=== PATIENT | male | born 1935 | race Caucasian/White ===

== ENCOUNTER 2018-12-21 05:34 | Inpatient (IN) ==
[2018-12-21] MEDS ORDERED: Dextrose 50% in Water 50 ML Vial IV.PUSH PRN (06:00)
[2018-12-21] MEDS ORDERED: Chlorhexidine 4% Topical 120 APPLIC/120 ML Bottle TOPICAL SCH (06:00)
[2018-12-21] MEDS ORDERED: ceFAZolin 2 GM Premix Inj 2 GM/50 ML PIGGYBACK IV.SIG SCH (06:00)
[2018-12-21] MEDS ORDERED: Sodium Chlor 0.9% Inj 77.5 ML, Papaverine Inj 60 MG, Nitroglycerin Inj 100 MCG, dilTIAZ... IRRIGATION SCH ×3 (06:00)
[2018-12-21] MEDS ORDERED: Sodium Chloride 0.9% Irr Bot 500 ML, ceFAZolin Inj 500 MG IRRIGATION SCH ×2 (06:00)
[2018-12-21] MEDS ORDERED: Insulin Regular (For Infusion) 100 UNIT in Sodium Chlor 0.9% Inj 99 ML IV.CONT PRN ×2 (06:00→12:34)
[2018-12-21] MEDS ORDERED: Chlorhexidine Gluconate 2% 1 Pack (2 Cloths) TOPICAL ONE (06:04)
[2018-12-21] MEDS ORDERED: Sugammadex Inj 200 MG/2 ML Vial IV.PUSH ONE (06:45)
[2018-12-21] MEDS ORDERED: fentaNYL Citrate Inj 1,000 MCG/20 ML Vial ONE (06:46)
[2018-12-21] MEDS ORDERED: Heparin - SQ 10,000 UNITS/ML Vial ONE ×2 (06:50→06:51)
[2018-12-21] MEDS ORDERED: ceFAZolin 2 GM Premix Inj 2 GM/50 ML PIGGYBACK IV.SIG ONE (06:50)
[2018-12-21] MEDS ORDERED: Sodium Chlor 0.9% Inj 500 ML IV.SIG SCH (07:00)
[2018-12-21] MEDS ORDERED: Glycopyrrolate 0.2 MG/ML Vial IV.PUSH ONE (07:38)
[2018-12-21] MEDS ORDERED: Phenylephrine/NS 1000 MCG/10ML Syringe IV.PUSH ONE (07:38)
[2018-12-21] MEDS ORDERED: Protamine Sulfate Inj 250 MG/25 ML Vial IV.CONT ONE (07:38)
[2018-12-21] MEDS ORDERED: Heparin - SQ 10,000 UNITS/ML Vial OTHER ONE (07:38)
[2018-12-21] MEDS ORDERED: Normosol-R pH 7.4 Inj 2,000 ML IV.CONT ONE (07:38)
[2018-12-21] MEDS ORDERED: Dexmedetomidine Inj 200 MCG/2 ML Vial IV.CONT ONE (07:38)
[2018-12-21] MEDS ORDERED: Lidocaine PF 1% Inj 5 ML Vial INFILTRATN ONE (07:38)
[2018-12-21] MEDS ORDERED: Nitroglycerin Drip Premix 50 MG/250 ML BOTTLE IV.CONT ONE (07:38)
[2018-12-21] MEDS ORDERED: Clevidipine Inj 25 MG/50 ML VIAL ONE (08:52)
[2018-12-21] MEDS ORDERED: Ketorolac Inj 30 MG/ML (IVP) Vial IV.PUSH PRN (12:34)
[2018-12-21] MEDS ORDERED: RESP: Racemic Epinephrine 2.25% 0.5 ML Neb NEB PRN (12:34)
[2018-12-21] MEDS ORDERED: Post-op Orders (for Pharmacy) OTHER STA (12:34)
[2018-12-21] MEDS ORDERED: Metoprolol Inj 5 MG/5 ML Vial IV.PUSH PRN (12:34)
[2018-12-21] MEDS ORDERED: Potassium Chlor 20 mEq Premix 20 MEQ/100 ML PIGGYBACK IV.SIG PRN ×3 (12:34)
[2018-12-21] MEDS ORDERED: Clevidipine Inj 25 MG/50 ML VIAL IV.CONT PRN (12:34)
[2018-12-21] MEDS ORDERED: Calcium Chloride Inj 1 GM in Sodium Chlor 0.9% Inj 100 ML IV.SIG PRN (12:34)
[2018-12-21] MEDS ORDERED: Morphine Sulfate Inj 2 MG/ML Vial IV.PUSH PRN (12:34)
[2018-12-21] MEDS ORDERED: Calcium Chloride Inj 1 GM/10 ML Syringe IV.PUSH PRN (12:34)
[2018-12-21] MEDS ORDERED: Magnesium Sulfate Inj 2 GM in Sodium Chlor 0.9% Inj 96 ML IV.SIG PRN ×4 (12:34)
[2018-12-21] MEDS ORDERED: Albumin Human 5% Inj 250 ML IV.SIG PRN (12:34)
[2018-12-21] MEDS ORDERED: Phenylephrine Inj 40 MG in Sodium Chlor 0.9% Inj 496 ML IV.CONT PRN (12:34)
[2018-12-21] MEDS ORDERED: Dexmedetomidine Inj 200 MCG in Sodium Chlor 0.9% Inj 50 ML IV.CONT PRN (12:34)
[2018-12-21] MEDS ORDERED: fentaNYL Citrate Inj 100 MCG/2 ML Ampul IV.PUSH PRN (12:34)
--- NOTE | 2018-12-21 12:43 | P.OP ---
Date of procedure: 12/21/18 Anesthesia: GETA Surgeon: Taylor Hackett MD Operation and Findings: PREPROCEDURE DIAGNOSES 1. Severe Multi Vessel Coronary Artery Disease. 2. TIA 3. Hypertension 4. Stable Angina POSTPROCEDURE DIAGNOSES Same SURGICAL PROCEDURE 1. Off-pump Coronary Artery Bypass Grafting x 3 with Left Internal Mammary Artery (LÓPEZ) to Left Anterior Descending (LAD), reverse saphenous vein graft to Diagonal 1 branch of the left Anterior Descending Artery, reverse saphenous vein graft to the posterior Descending branch of the right Coronary artery 2. Left leg Endoscopic Vein [place] 3. Intraoperative Vein Mapping. SURGEON Taylor Hackett MD STOCK ROOM MANAGER Ritu Durant, CLIENT EXECUTIVE FA Teto Bell SA ANESTHESIA General endotracheal CORK GRINDER MARIANN De La Rosa MD PREPARATION ChloraPrep. COUNTS Needle, sponge, and instrument counts were correct. DRAINS Two 32-Wolof mediastinal tubes. COMPLICATIONS None. INDICATIONS FOR PROCEDURE The patient is a 83-year-old presenting with chest pain. Patient was noted to have multi vessel coronary artery disease. The patient is being brought to the operating room for surgical revascularization therapy. PROCEDURE Patient was brought to the operating room and placed supine on the OR table. Following the induction of adequate general endotracheal anesthesia and placement of appropriate monitoring devices, intraoperative vein mapping was performed which revealed good-caliber conduit in bilateral lower extremities. The patient was then prepped and draped in standard sterile fashion. Next, 2500 units of intravenous heparin was given. The left greater saphenous vein was harvested endoscopically. This appeared to be a useable-caliber conduit. Simultaneously, a median sternotomy was performed and the left internal mammary artery dissected free off the posterior sternal table. The patient was systemically heparinized and anticoagulation monitored by serial ACT measurements. The internal mammary artery had excellent pulsatile flow in it and was a good-caliber conduit. The pericardium was then divided in the midline , the cradle created and targets analyzed. At this point, all anastomoses were performed in a beating-heart fashion using the Testive stabilizing system. The left internal mammary artery was anastomosed to the distal LAD (2 mm) in an end- to-side fashion using 7-0 Prolene. Of note, the LAD was diffusely and heavily calcified and diseased throughout its entire course. Segment of saphenous vein graft was then anastomosed to the D1 (1.75 mm) in an end-to-side fashion using 7 -0 Prolene. The final segment was anastomosed to the RPDA (1.75 mm) in an end- to-side fashion using 7-0 Prolene. The proximal anastomoses were then constructed to the ascending aorta in a running manner using 6-0 Prolene. All anastomotic sites were inspected and appeared to be hemostatic and patent. Protamine solution was given. Strict hemostasis was assured. The closure was undertaken. 2 chest tubes were placed. The pericardium was reapproximated in the midline. The sternum was approximated using sternal wires. The muscular and fascial layer were then closed in 3 layers. The endoscopic vein harvest site was closed in 2 layers. The patient tolerated the procedure well and was transferred to CVICU in stable condition.
[2018-12-21] MEDS ORDERED: Albumin Human 5% Inj 500 ML IV.SIG ONE (12:56)
[2018-12-21] MEDS ORDERED: fentaNYL Citrate Inj 250 MCG/5 ML Ampul ONE ×2 (13:13)
--- NOTE | 2018-12-21 13:27 | P.PNCV ---
- Note Subjective/Hospital Course: 11/19/2018 83-year-old male initially seen 11/19/18 post cardiac cath , followed by Dr. Carl, Dr. De Los Santos and also Dr. Aristides Gee who has been experiencing some exertional chest pain off and on for the past year, midsternal in nature. He was seen by Dr. De Los Santos in the past for a history of TIA and followup with echos and recently was seen in the office on 11/04/2018. He underwent a nuclear stress test which showed an ejection fraction of 55%, moderate ischemia of the inferolateral wall, left ventricular function normal. He also had a 2-D echo which showed an ejection fraction of 53%, some diastolic dysfunction. The left atrium was moderately dilated. No mitral disease. Some trivial tricuspid disease. Mild LVH. It showed a mildly enlarged aortic root. The root measured 44 mm. He underwent a cardiac catheterization which showed left main disease 10%, proximal LAD 60%, mid distal LAD 80%, diagonal 70%, circumflex 100% , OM 80%, RCA 100%. PAST MEDICAL HISTORY: Includes a history of TIA. His last one was in July 2017. He has had 4 episodes in the past. Hyperlipidemia, hypertension, sleep apnea. 12/21 pt electively admitted for surgery SURGICAL PROCEDURE 1. Off-pump Coronary Artery Bypass Grafting x 3 with Left Internal Mammary Artery (LÓPEZ) to Left Anterior Descending (LAD), reverse saphenous vein graft to Diagonal 1 branch of the left Anterior Descending Artery, reverse saphenous vein graft to the posterior Descending branch of the right Coronary artery 2. Left leg Endoscopic Vein [place] 3. Intraoperative Vein Mapping. Objective: Vital Signs - 24 hr 12/21/18 06:42 12/21/18 13:05 12/21/18 13:16 Temperature 98.5 F Pulse Rate 64 Respiratory Rate 18 17 Blood Pressure 172/97 H Pulse Oximetry 95 96 94 L Labs: Laboratory Results - last 12 hr 12/21/18 12/21/18 06:35 06:35 Nasal Screen MRSA (PCR) Not detected Blood Type O Positive Antibody Screen Negative MTS Gel Crossmatch See Detail
--- NOTE | 2018-12-21 13:55 | XR ---
EXAM DATE: 12/21/2018 1:41 PM EST AGE/SEX: 83 years / Male INDICATIONS: Post op CABG. CLINICAL DATA: This is the patient's subsequent encounter. Patient reports that signs and symptoms h ave been present for 1 day and indicates a pain score of Nonresponsive. MEDICAL/SURGICAL HISTORY: Cardiovascular disease. CABG. COMPARISON: [facility], XR CHEST PA AND LAT, 12/16/2018. . FINDINGS: Patient is now postoperative median sternotomy. Mediastinal drain, left chest tube, endotracheal tube , nasogastric tube and right IJ central venous catheter are all present. Endotracheal tube tip is quentin roximately 4 cm above the elma. Mild atelectasis and small pleural effusion at the left lung base. There is a tiny right pleural effu payton. CONCLUSION: 1. Postoperative median sternotomy with appropriate position of lines and tubes as above. 2. Tiny right pleural effusion. 3. Small pleural effusion and mild basilar consolidation on the left. Electronically signed by: Kodi Ta MD Board Certified Radiologist 12/21/2018 1:54 PM EST
--- NOTE | 2018-12-21 14:04 | P.DCO ---
- Diagnosis (1) CAD (coronary artery disease), [place] coronary artery Status: Acute (2) S/P CABG x 3 Status: Acute (3) Hyperlipidemia Status: Chronic (4) Hypertension Status: Chronic (5) Hyperlipidemia Status: Chronic - Home Health Nursing Order: Medical education, Signs/symptoms of disease process, Wound care and dressing changes, Nursing assessment with vital signs Instructions: Heart and Vascular Surgery patients *Special attention to sternal dressing Mandatory frequency Assess and evaluation, 4 days in a row The next week 3X week 2 times a week for 4 weeks 1 time a week for 5 weeks Schedule Heart and Vascular patients for full 60 day certification period Initial visit Review Open Heart Surgery Discharge Instructions (Sternal precautions, Activity, Elastic hose, Incision care, Driving, Incentive spirometry, Smoking, [place], Work and other) Need Betadine to paint incision Medication reconciliation Importance of follow up care/ check on appointments Make calendar record temperature daily When to call [facility] at Home nurse, review instructions, phone list Incentive Spirometry, demonstration Visit 1- Begin discharge instruction for patient family and/ or caregiver using teach back method- Signs and symptoms of infection Disease characteristics Medicines and side effects Foods and nutrition/ appetite Infection control/ hand washing/ hygiene Visit 2- Continue teaching Discharge instructions- include additional information on smoking cessation , sternal dressing (sternal vac) Visit 3- Continue teaching- Cough and deep breathing, incision monitoring. Choose my plate Visit 4- Continue teaching- Discuss limitations Discuss how they are feeling Discuss progress toward goals Remaining visits- continue teaching and monitoring For any questions please call : Thursday 8am-5pm Heart & Vascular Surgery Office ( Dr. Hackett & Dr. Noble), After Hours / Nights (5pm -8am) Weekends and Holidays Please call [facility] Cardiac Intermediate Care Unit (CIC) Charge Nurse PREVENA Single Use Negative Wound Therapy System Caregiver Instruction Sheet 1. A Prevena dressing system was applied to the chest incision during surgery , to promote wound healing. It works via a suction device (negative pressure wound therapy) to remove low to moderate levels of exudate (drainage) and infectious materials. We recommend that the device stay in place for up to seven days, from day of surgery. 2. Day of Surgery___/ Day of Removal ___12/28/18 3. The dressing should only be removed by a health career orientation teacher. Please arrange removal of device to coincide with Home Health visit and or with Nursing staff at Rehab 4. If skin reddening or irritation of skin occurs, or excessive drainage, please notify the Cardiovascular Surgeons office at [phone]. 5. Light showering is permissible; however the pump should be disconnected and placed in safe location, where it will not get wet. The dressing should not be exposed to direct spray or submerged in water. No bath tub / shower only. Ensure the end of the tubing attached to the dressing is facing down so that water does not enter the top of the tube. 6. To remove Prevena dressing: press purple button to turn off device / remove the suction. Then disconnect the tubing from the pump. The fixation strips should be stretched away from the skin and the dressing lifted at one corner and peeled back until it has been fully removed. 7. After removal, it is ok to shower daily using liquid dial soap and clean wash cloth, rinse and pat dry, and leave incision open to air dry. For any concerns regarding Prevena dressing, and or wounds, please contact Aidee Cat, patient navigator at [phone] or notify the Cardiovascular Surgeons office at [phone]. Incentive spirometry Q1 hr x 10, while awake, also use acapella device hourly whole awake Sternal Breast Bone Precautions: NO pushing or pulling, ( pt must use sternal pillow to support chest with all activities and with coughing ( takes up to 3 months breast bone to heal ) Daily incision care: ok to shower daily, no tub bath. Wash all incisions with liquid dial soap, clean wash cloth to each site, rinse and pat dry. Observe for any signs of infection, such as drainage which is dark yellow, velez, green or foul smelling. Immediately report to the surgeon any drainage from the chest incision, or legs, and for any abnormal drainage from the chest tube sites. Notify surgeon if any temp >101.5 degrees F. When specialty dressing removed/ or if you do not have one, continue to shower daily as above, then rinse and pat incision dry and paint with betadine daily x 5 days. Allow steri strips to fall off if you have any. Avoid lotions, creams, salves, oils, etc. for the first month Please see attached forms for additional instructions regarding post Open Heart specialty wound vacuum dressings. VANESSA or Prevena , Dressing to be removed by Nursing staff on _12/28/18_ F/U appointment: as per [place] instructions: PCP in 2 weeks, CV surgeon 2 weeks, Slope Runner 3-4 weeks For any questions regarding incisions/ dressing / meds / post op care or above Symptoms, Thursday 8am-5pm Heart & Vascular Surgery Office ( Dr. Hackett & Dr. Noble), After Hours / Nights (5pm -8am) Weekends and Holidays Please call [facility] Cardiac Intermediate Care Unit (CIC) Charge Nurse - Case Management Consult Case Management Consult-Home Health: Yes - Certification I have seen patient Buzz Avila on 12/21/18. My clinical findings support the need for the requested home health care services because: Deconditioned with increased weakness I certify that my clinical findings support that this patient is homebound because: Post-op weakness
[2018-12-21] MEDS ORDERED: ceFAZolin Inj 2,000 MG in Sodium Chlor 0.9% Inj 80 ML IV.SIG SCH (20:00)
[2018-12-21] MEDS: ceFAZolin 2 GM Premix Inj 2 GM/50 ML PIGGYBACK IV.SIG SCH (20:18)
[2018-12-21] MEDS: Amiodarone 200 MG Tablet PO SCH (20:19)
[2018-12-22] MEDS: ceFAZolin 2 GM Premix Inj 2 GM/50 ML PIGGYBACK IV.SIG SCH ×3 (03:26→20:00)
[2018-12-22 04:25] LABS: Hematocrit 36.9 % (39.0-51.0); Hemoglobin 12.9 gm/dL (13.0-17.0); Mean Corpuscular HGB Conc 34.9 % (32.0-36.0); Mean Corpuscular Hemoglobin 32.3 pg (27.0-34.0); Mean Corpuscular Volume 92.6 fL (80.0-100.0); Mean Platelet Volume 9.1 fL (7.0-11.0); Platelet Count 79 th/mm3 (150-450); Red Blood Count 3.99 mil/mm3 (4.50-5.90); Red Cell Distribution Width 13.3 % (11.6-17.2); White Blood Count 7.2 th/mm3 (4.0-11.0)
[2018-12-22 04:45] LABS: Calcium 8.9 mg/dL (8.5-10.1); Carbon Dioxide 24.6 meq/L (21.0-32.0); Potassium 4.2 meq/L (3.5-5.1)
--- NOTE | 2018-12-22 05:53 | XR ---
EXAM DATE: 12/22/2018 5:48 AM EST AGE/SEX: 83 years / Male INDICATIONS: S/P CABG. CLINICAL DATA: This is the patient's subsequent encounter. Patient reports that signs and symptoms h ave been present for 2 days and indicates a pain score of 0/10. MEDICAL/SURGICAL HISTORY: . High cholesterol. TIA. Hearing impared. HTN. CABG. Appendectomy. COMPARISON: [facility] [place]ST 1V SINGLE AP, 12/21/2018. . FINDINGS: A single AP view of the chest demonstrates the lungs to be symmetrically aerated with improving aerat ion in the left lung base. There is still some persistent airspace disease, however. Left-sided thora costomy tube is unchanged in position without pneumothorax. The endotracheal and nasogastric tubes be en removed. Right IJ central venous catheter is stable in position. Heart size is borderline prominen t but well compensated. CONCLUSION: 1. Endotracheal and nasogastric tubes have been removed. Left-sided thoracostomy tube in the right I J central venous catheter are unchanged in position. No pneumothorax. 2. Improving aeration in the left lung base. Right lung remains clear. Electronically signed by: Bridger Young MD Board Certified Radiologist 12/22/2018 5:52 AM EST
[2018-12-22] MEDS ORDERED: Dextrose 50% in Water 50 ML Vial IV.PUSH PRN (08:33)
[2018-12-22] MEDS ORDERED: Bisacodyl 10 MG Supp RECTAL PRN (08:33)
[2018-12-22] MEDS ORDERED: Sod Phosphate/Sod Biphosphate (Adult) Enema 133 ML Bottle RECTAL PRN (08:33)
[2018-12-22] MEDS ORDERED: Metoprolol Tartrate 25 MG Tablet PO SCH (09:00)
[2018-12-22] MEDS: Amiodarone 200 MG Tablet PO SCH ×2 (09:07→20:55)
[2018-12-22] MEDS: Multivitamin/Minerals Therapeutic Tablet PO SCH (09:07)
[2018-12-22] MEDS: Insulin NovoLOG Aspart Correctional Sugar Inj SQ SCH ×4 (10:11→21:58)
--- NOTE | 2018-12-22 10:19 | P.PNCV ---
- Note Subjective/Hospital Course: 11/19/2018 83-year-old male initially seen 11/19/18 post cardiac cath , followed by Dr. Carl, Dr. De Los Santos and also Dr. Aristides Gee who has been experiencing some exertional chest pain off and on for the past year, midsternal in nature. He was seen by Dr. De Los Santos in the past for a history of TIA and followup with echos and recently was seen in the office on 11/04/2018. He underwent a nuclear stress test which showed an ejection fraction of 55%, moderate ischemia of the inferolateral wall, left ventricular function normal. He also had a 2-D echo which showed an ejection fraction of 53%, some diastolic dysfunction. The left atrium was moderately dilated. No mitral disease. Some trivial tricuspid disease. Mild LVH. It showed a mildly enlarged aortic root. The root measured 44 mm. He underwent a cardiac catheterization which showed left main disease 10%, proximal LAD 60%, mid distal LAD 80%, diagonal 70%, circumflex 100% , OM 80%, RCA 100%. PAST MEDICAL HISTORY: Includes a history of TIA. His last one was in July 2017. He has had 4 episodes in the past. Hyperlipidemia, hypertension, sleep apnea. 12/21 pt electively admitted for surgery SURGICAL PROCEDURE 1. Off-pump Coronary Artery Bypass Grafting x 3 with Left Internal Mammary Artery (LÓPEZ) to Left Anterior Descending (LAD), reverse saphenous vein graft to Diagonal 1 branch of the left Anterior Descending Artery, reverse saphenous vein graft to the posterior Descending branch of the right Coronary artery 2. Left leg Endoscopic Vein [place] 3. Intraoperative Vein Mapping. extubated after surgery crystalloid 3500cc, 1000cc cell saver, 2000cc EBL 2/20 pt weaned off all IV meds, BP on higher sexual assault counselor, will add BB and Cozaar pain control PLT 79 ( 113) hold plavix today , ok for ASA will transfer to stepdown unit Objective: Vital Signs - 24 hr 12/21/18 13:05 12/21/18 13:16 12/21/18 13:40 Temperature 95.6 F L Pulse Rate Respiratory Rate 17 Blood Pressure Pulse Oximetry 96 94 L 12/21/18 13:53 12/21/18 14:00 12/21/18 15:00 Temperature 95.6 F L 98.5 F Pulse Rate 63 80 Respiratory Rate 16 Blood Pressure 150/73 H Pulse Oximetry 98 12/21/18 16:07 12/21/18 16:20 12/21/18 16:59 Temperature 97.6 F Pulse Rate 91 H 90 Respiratory Rate 20 Blood Pressure Pulse Oximetry 12/21/18 17:55 12/21/18 19:00 12/21/18 20:00 Temperature 97.8 F Pulse Rate 91 H 88 91 H Respiratory Rate 18 Blood Pressure 137/83 Pulse Oximetry 95 12/21/18 20:35 12/21/18 20:49 12/21/18 23:00 Temperature 97.9 F Pulse Rate 85 88 Respiratory Rate 18 20 18 Blood Pressure 138/78 Pulse Oximetry 95 12/22/18 00:00 12/22/18 02:30 12/22/18 03:00 Temperature 98.7 F Pulse Rate 89 Respiratory Rate 18 18 18 Blood Pressure 122/63 Pulse Oximetry 96 12/22/18 03:35 12/22/18 04:00 12/22/18 07:00 Temperature 98.9 F Pulse Rate 90 90 96 H Respiratory Rate 14 18 Blood Pressure Pulse Oximetry 94 L GENERAL: A&O x 3 SKIN: Warm and dry. prevena dressing to chest , BETTY wrap to left leg HEAD: Normocephalic. EYES: No scleral icterus. No injection or drainage. NECK: Supple, trachea midline. No JVD or lymphadenopathy. CARDIOVASCULAR: Regular rate and rhythm without murmurs, gallops, or rubs. RESPIRATORY: Breath sounds equal bilaterally. No accessory muscle use. diminished in bases , on nasal cannula GASTROINTESTINAL: Abdomen soft, non-tender, nondistended. MUSCULOSKELETAL: No cyanosis, or edema. BACK: Nontender without obvious deformity. No CVA tenderness. Labs: Laboratory Results - last 12 hr 12/21/18 12/22/18 12/22/18 06:35 00:24 02:08 WBC RBC Hgb Hct MCV MCH MCHC RDW Plt Count MPV Sodium Potassium Chloride Carbon Dioxide Anion Gap BUN Creatinine Estimated GFR POC Glucose 126 H 94 Random Glucose Calcium Magnesium Blood Type O Positive Antibody Screen Negative MTS Gel Crossmatch See Detail 12/22/18 12/22/18 12/22/18 04:10 04:10 04:14 WBC 7.2 RBC 3.99 L Hgb 12.9 L Hct 36.9 L MCV 92.6 MCH 32.3 MCHC 34.9 RDW 13.3 Plt Count 79 L MPV 9.1 Sodium 141 Potassium 4.2 Chloride 108 H Carbon Dioxide 24.6 Anion Gap 8 BUN 13 Creatinine 0.95 Estimated GFR 75 L POC Glucose 127 H Random Glucose 135 H Calcium 8.9 Magnesium 2.0 Blood Type Antibody Screen MTS Gel Crossmatch 12/22/18 05:48 WBC RBC Hgb Hct MCV MCH MCHC RDW Plt Count MPV Sodium Potassium Chloride Carbon Dioxide Anion Gap BUN Creatinine Estimated GFR POC Glucose 119 H Random Glucose Calcium Magnesium Blood Type Antibody Screen MTS Gel Crossmatch Result Diagrams: 12/22/18 04:10 12/22/18 04:10 Cardiovascular: NSR - Plan (2) S/P CABG x 3 Plan: Neuro: stable Resp: pulm toielting nebs ezpap acapella wean 02 as tolerated CV: start BB , cozaar on ASA , statin amiodarone hold plavix until am GI: motility meds PPI Heme: monitor plts hold plavix today CM to eval for rehab at discharge transfer to stepdown unit
--- NOTE | 2018-12-22 11:11 | P.DIET ---
Nutritional Evaluation Screening comments: MDC for diet education s/p CABG x 3 (12/21) received. Patient Navigator to provide education. Consult RD if complexities with diet education arise.
[2018-12-22] MEDS: Metoprolol Tartrate 25 MG Tablet PO SCH ×2 (11:35→21:59)
[2018-12-22] MEDS: Docusate Sodium 100 MG Capsule PO SCH (20:55)
--- NOTE | 2018-12-22 22:40 | ECG ---
Date Performed: 12/22/2018 Time Performed: 05:45:24 PTAGE: 83 years EKG: Sinus rhythm Possible left anterior fascicular block Lateral ST-T changes may be due to myocardial ischemia Abnor mal ECG PREVIOUS TRACING : 11/19/2018 06.48 DOCTOR: Henrique Uribe Interpretating Date/Time 12/22/2018 22:38:38
[2018-12-23] MEDS: ceFAZolin 2 GM Premix Inj 2 GM/50 ML PIGGYBACK IV.SIG SCH (03:28)
[2018-12-23] MEDS: Insulin NovoLOG Aspart Correctional Sugar Inj SQ SCH ×5 (03:38→21:58)
[2018-12-23 04:47] LABS: Baso % (Auto) 0.1 % (0.0-2.0); Eos % (Auto) 0.4 % (0.0-4.0); Hemoglobin 11.3 gm/dL (13.0-17.0); Lymph # (Auto) 0.7 th/mm3 (1.0-4.8); Lymph % (Auto) 7.3 % (9.0-44.0); Mean Corpuscular HGB Conc 34.2 % (32.0-36.0); Mean Corpuscular Hemoglobin 31.6 pg (27.0-34.0); Mean Corpuscular Volume 92.5 fL (80.0-100.0); Mean Platelet Volume 9.3 fL (7.0-11.0); Mono # (Auto) 1.2 th/mm3 (0.0-0.9); Mono % (Auto) 13.3 % (0.0-8.0); Neut # (Auto) 7.2 th/mm3 (1.8-7.7); Neut % (Auto) 78.9 % (16.0-70.0); Platelet Count 74 th/mm3 (150-450); Red Blood Count 3.57 mil/mm3 (4.50-5.90); Red Cell Distribution Width 13.6 % (11.6-17.2); White Blood Count 9.1 th/mm3 (4.0-11.0)
[2018-12-23 05:01] LABS: Calcium 9.4 mg/dL (8.5-10.1); Carbon Dioxide 26.5 meq/L (21.0-32.0); Magnesium 2.5 mg/dL (1.5-2.5); Potassium 4.5 meq/L (3.5-5.1)
[2018-12-23 06:41] LABS: Platelet Morphology Normal (Normal)
--- NOTE | 2018-12-23 07:57 | P.PNCV ---
- Note Subjective/Hospital Course: 11/19/2018 83-year-old male initially seen 11/19/18 post cardiac cath , followed by Dr. Carl, Dr. De Los Santos and also Dr. Aristides Gee who has been experiencing some exertional chest pain off and on for the past year, midsternal in nature. He was seen by Dr. De Los Santos in the past for a history of TIA and followup with echos and recently was seen in the office on 11/04/2018. He underwent a nuclear stress test which showed an ejection fraction of 55%, moderate ischemia of the inferolateral wall, left ventricular function normal. He also had a 2-D echo which showed an ejection fraction of 53%, some diastolic dysfunction. The left atrium was moderately dilated. No mitral disease. Some trivial tricuspid disease. Mild LVH. It showed a mildly enlarged aortic root. The root measured 44 mm. He underwent a cardiac catheterization which showed left main disease 10%, proximal LAD 60%, mid distal LAD 80%, diagonal 70%, circumflex 100% , OM 80%, RCA 100%. PAST MEDICAL HISTORY: Includes a history of TIA. His last one was in July 2017. He has had 4 episodes in the past. Hyperlipidemia, hypertension, sleep apnea. 12/21 pt electively admitted for surgery SURGICAL PROCEDURE 1. Off-pump Coronary Artery Bypass Grafting x 3 with Left Internal Mammary Artery (LÓPEZ) to Left Anterior Descending (LAD), reverse saphenous vein graft to Diagonal 1 branch of the left Anterior Descending Artery, reverse saphenous vein graft to the posterior Descending branch of the right Coronary artery 2. Left leg Endoscopic Vein [place] 3. Intraoperative Vein Mapping. extubated after surgery crystalloid 3500cc, 1000cc cell saver, 2000cc EBL 12/22 pt weaned off all IV meds, BP on higher mortar carrier, will add BB and Cozaar pain control PLT 79 ( 113) hold plavix today , ok for ASA will transfer to stepdown unit 12/23 Clinically stable Awaiting CPCU transfer Creatinine up. Will monitor. D/C Toradol Maintain CT to drainage Objective: Vital Signs - 24 hr 12/22/18 10:40 12/22/18 11:00 12/22/18 12:00 Temperature 98.6 F Pulse Rate 48 L Respiratory Rate 18 18 Blood Pressure 101/49 L Pulse Oximetry 97 94 L 12/22/18 13:22 12/22/18 15:00 12/22/18 19:00 Temperature 98.3 F 97.9 F Pulse Rate 49 L 49 L 56 L Respiratory Rate 18 18 Blood Pressure 123/93 H 104/52 L Pulse Oximetry 97 90 L 12/22/18 19:12 12/22/18 22:31 12/22/18 22:32 Temperature Pulse Rate 56 L Respiratory Rate 20 20 Blood Pressure Pulse Oximetry 97 12/22/18 23:00 12/23/18 00:30 12/23/18 03:00 Temperature 97.9 F 98.1 F Pulse Rate 65 57 L Respiratory Rate 18 16 18 Blood Pressure 132/51 L 106/53 L Pulse Oximetry 95 95 Labs: Laboratory Results - last 12 hr 12/22/18 12/23/18 12/23/18 21:39 03:36 04:00 WBC 9.1 RBC 3.57 L Hgb 11.3 L Hct 33.0 L MCV 92.5 MCH 31.6 MCHC 34.2 RDW 13.6 Plt Count 74 L MPV 9.3 Prelim Diff (Auto) Slide review pending Neut % (Auto) 78.9 H Lymph % (Auto) 7.3 L Gregory % (Auto) 13.3 H Eos % (Auto) 0.4 Baso % (Auto) 0.1 Neut # (Auto) 7.2 Lymph # (Auto) 0.7 L Gregory # (Auto) 1.2 H Eos # (Auto) 0.0 Baso # (Auto) 0.0 WBC Differential . Diff Scan Auto diff confirmed Differential Comment . Platelet Estimate Low L Platelet Morphology Normal Sodium Potassium Chloride Carbon Dioxide Anion Gap BUN Creatinine Estimated GFR POC Glucose 160 H 131 H Random Glucose Calcium Magnesium 12/23/18 04:00 WBC RBC Hgb Hct MCV MCH MCHC RDW Plt Count MPV Prelim Diff (Auto) Neut % (Auto) Lymph % (Auto) Gregory % (Auto) Eos % (Auto) Baso % (Auto) Neut # (Auto) Lymph # (Auto) Gregory # (Auto) Eos # (Auto) Baso # (Auto) WBC Differential Diff Scan Differential Comment Platelet Estimate Platelet Morphology Sodium 137 Potassium 4.5 Chloride 103 Carbon Dioxide 26.5 Anion Gap 8 BUN 22 H Creatinine 1.61 H Estimated GFR 41 L POC Glucose Random Glucose 128 H Calcium 9.4 Magnesium 2.5 Result Diagrams: 12/23/18 04:00 12/23/18 04:00 - Plan (2) S/P CABG x 3 Plan: Neuro: stable Resp: pulm toielting nebs ezpap acapella wean 02 as tolerated CV: start BB , cozaar on ASA , statin amiodarone hold plavix until am GI: motility meds PPI Heme: monitor plts hold plavix today CM to eval for rehab at discharge transfer to stepdown unit
[2018-12-23] MEDS: Multivitamin/Minerals Therapeutic Tablet PO SCH (08:37)
[2018-12-23] MEDS: Polyethylene Glycol 3350 17 GM Packet PO SCH (08:38)
[2018-12-23] MEDS: Docusate Sodium 100 MG Capsule PO SCH ×2 (08:38→21:44)
[2018-12-23] MEDS: Amiodarone 200 MG Tablet PO SCH ×2 (08:38→21:42)
[2018-12-23] MEDS: Metoprolol Tartrate 25 MG Tablet PO SCH ×2 (11:56→21:42)
--- NOTE | 2018-12-23 19:37 | XR ---
EXAM DATE: 12/23/2018 7:32 PM EST AGE/SEX: 83 years / Male INDICATIONS: Short of breath CLINICAL DATA: This is the patient's subsequent encounter. Patient reports that signs and symptoms h ave been present for 3 days and indicates a pain score of 0/10. MEDICAL/SURGICAL HISTORY: . Chronic obstructive pulmonary disease. A-fib CABG. COMPARISON: [facility], CHEST 1V SINGLE AP, 12/22/2018. . FINDINGS: Central venous line in good position. Left chest tube in place without pneumothorax. Heart is enlarge d. Mild interstitial edema, improved in the interval. CONCLUSION: Cardiomegaly with mild interstitial edema, improved in the interval. Electronically signed by: Krishna Esparza MD Board Certified Radiologist 12/23/2018 7:36 PM EST
[2018-12-24] MEDS: Metoprolol Tartrate 25 MG Tablet PO SCH ×3 (01:30→21:14)
[2018-12-24] MEDS: Amiodarone 200 MG Tablet PO SCH ×2 (08:49→21:14)
[2018-12-24] MEDS: Polyethylene Glycol 3350 17 GM Packet PO SCH (08:49)
[2018-12-24] MEDS: Multivitamin/Minerals Therapeutic Tablet PO SCH (08:49)
[2018-12-24] MEDS: Docusate Sodium 100 MG Capsule PO SCH ×2 (08:49→21:14)
[2018-12-24 10:53] LABS: Hematocrit 34.8 % (39.0-51.0); Hemoglobin 11.9 gm/dL (13.0-17.0); Mean Corpuscular HGB Conc 34.2 % (32.0-36.0); Mean Corpuscular Hemoglobin 32.4 pg (27.0-34.0); Mean Corpuscular Volume 94.7 fL (80.0-100.0); Mean Platelet Volume 9.2 fL (7.0-11.0); Platelet Count 78 th/mm3 (150-450); Red Blood Count 3.67 mil/mm3 (4.50-5.90); Red Cell Distribution Width 13.7 % (11.6-17.2); White Blood Count 8.2 th/mm3 (4.0-11.0)
[2018-12-24 11:14] LABS: Calcium 10.1 mg/dL (8.5-10.1); Carbon Dioxide 28.6 meq/L (21.0-32.0); Potassium 4.2 meq/L (3.5-5.1)
[2018-12-24] MEDS: Insulin NovoLOG Aspart Correctional Sugar Inj SQ SCH ×4 (11:50→21:16)
--- NOTE | 2018-12-24 13:37 | P.PNCV ---
- Note Subjective/Hospital Course: 11/19/2018 83-year-old male initially seen 11/19/18 post cardiac cath , followed by Dr. Carl, Dr. De Los Santos and also Dr. Aristides Gee who has been experiencing some exertional chest pain off and on for the past year, midsternal in nature. He was seen by Dr. De Los Santos in the past for a history of TIA and followup with echos and recently was seen in the office on 11/04/2018. He underwent a nuclear stress test which showed an ejection fraction of 55%, moderate ischemia of the inferolateral wall, left ventricular function normal. He also had a 2-D echo which showed an ejection fraction of 53%, some diastolic dysfunction. The left atrium was moderately dilated. No mitral disease. Some trivial tricuspid disease. Mild LVH. It showed a mildly enlarged aortic root. The root measured 44 mm. He underwent a cardiac catheterization which showed left main disease 10%, proximal LAD 60%, mid distal LAD 80%, diagonal 70%, circumflex 100% , OM 80%, RCA 100%. PAST MEDICAL HISTORY: Includes a history of TIA. His last one was in July 2017. He has had 4 episodes in the past. Hyperlipidemia, hypertension, sleep apnea. 12/21 pt electively admitted for surgery SURGICAL PROCEDURE 1. Off-pump Coronary Artery Bypass Grafting x 3 with Left Internal Mammary Artery (LÓPEZ) to Left Anterior Descending (LAD), reverse saphenous vein graft to Diagonal 1 branch of the left Anterior Descending Artery, reverse saphenous vein graft to the posterior Descending branch of the right Coronary artery 2. Left leg Endoscopic Vein [place] 3. Intraoperative Vein Mapping. 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 Will monitor. D/C Toradol Maintain CT to drainage 12/24 Clinically stable Still waiting for floor bed Chest tubes continue to drain. Maintained to suction Discharge planning Objective: Vital Signs - 24 hr 12/23/18 14:38 12/23/18 15:00 12/23/18 19:00 Temperature 98.1 F 98.4 F Pulse Rate 73 75 95 H Respiratory Rate 20 20 20 Blood Pressure 121/65 153/77 H Pulse Oximetry 94 L 93 L 12/23/18 20:00 12/23/18 21:06 12/23/18 23:00 Temperature 98.4 F Pulse Rate 84 78 82 Respiratory Rate 20 22 Blood Pressure 149/86 H Pulse Oximetry 94 L 95 12/24/18 03:00 12/24/18 07:00 12/24/18 08:00 Temperature 98.6 F 98 F Pulse Rate 75 84 Respiratory Rate 20 16 Blood Pressure 147/76 H 108/66 Pulse Oximetry 94 L 97 12/24/18 09:33 12/24/18 11:00 Temperature 98.1 F Pulse Rate 76 76 Respiratory Rate 18 16 Blood Pressure 121/69 Pulse Oximetry 94 L 91 L Labs: Laboratory Results - last 12 hr 12/21/18 12/24/18 12/24/18 06:35 07:55 10:00 WBC 8.2 RBC 3.67 L Hgb 11.9 L Hct 34.8 L MCV 94.7 MCH 32.4 MCHC 34.2 RDW 13.7 Plt Count 78 L MPV 9.2 Sodium Potassium Chloride Carbon Dioxide Anion Gap BUN Creatinine Estimated GFR POC Glucose 104 Random Glucose Calcium MTS Gel Crossmatch See Detail 12/24/18 12/24/18 10:00 11:46 WBC RBC Hgb Hct MCV MCH MCHC RDW Plt Count MPV Sodium 139 Potassium 4.2 Chloride 105 Carbon Dioxide 28.6 Anion Gap 5 BUN 14 Creatinine 0.86 Estimated GFR 85 L POC Glucose 132 H Random Glucose 122 H Calcium 10.1 MTS Gel Crossmatch Result Diagrams: 12/24/18 10:00 12/24/18 10:00 - Plan (2) S/P CABG x 3 Plan: Neuro: stable Resp: pulm toielting nebs ezpap acapella wean 02 as tolerated CV: start BB , cozaar on ASA , statin amiodarone hold plavix until am GI: motility meds PPI Heme: monitor plts hold plavix today CM to eval for rehab at discharge transfer to stepdown unit
[2018-12-25] MEDS: Polyethylene Glycol 3350 17 GM Packet PO SCH (09:08)
[2018-12-25] MEDS: Insulin NovoLOG Aspart Correctional Sugar Inj SQ SCH ×4 (09:08→21:16)
[2018-12-25] MEDS: Amiodarone 200 MG Tablet PO SCH ×2 (09:09→21:16)
[2018-12-25] MEDS: Multivitamin/Minerals Therapeutic Tablet PO SCH (09:09)
[2018-12-25] MEDS: Docusate Sodium 100 MG Capsule PO SCH ×2 (09:09→21:16)
[2018-12-25] MEDS: Metoprolol Tartrate 25 MG Tablet PO SCH ×3 (09:10→21:12)
--- NOTE | 2018-12-25 09:29 | P.PNCV ---
- Note Subjective/Hospital Course: 11/19/2018 83-year-old male initially seen 11/19/18 post cardiac cath , followed by Dr. Carl, Dr. De Los Santos and also Dr. Aristides Gee who has been experiencing some exertional chest pain off and on for the past year, midsternal in nature. He was seen by Dr. De Los Santos in the past for a history of TIA and followup with echos and recently was seen in the office on 11/04/2018. He underwent a nuclear stress test which showed an ejection fraction of 55%, moderate ischemia of the inferolateral wall, left ventricular function normal. He also had a 2-D echo which showed an ejection fraction of 53%, some diastolic dysfunction. The left atrium was moderately dilated. No mitral disease. Some trivial tricuspid disease. Mild LVH. It showed a mildly enlarged aortic root. The root measured 44 mm. He underwent a cardiac catheterization which showed left main disease 10%, proximal LAD 60%, mid distal LAD 80%, diagonal 70%, circumflex 100% , OM 80%, RCA 100%. PAST MEDICAL HISTORY: Includes a history of TIA. His last one was in July 2017. He has had 4 episodes in the past. Hyperlipidemia, hypertension, sleep apnea. 12/21 pt electively admitted for surgery SURGICAL PROCEDURE 1. Off-pump Coronary Artery Bypass Grafting x 3 with Left Internal Mammary Artery (LÓPEZ) to Left Anterior Descending (LAD), reverse saphenous vein graft to Diagonal 1 branch of the left Anterior Descending Artery, reverse saphenous vein graft to the posterior Descending branch of the right Coronary artery 2. Left leg Endoscopic Vein [place] 3. Intraoperative Vein Mapping. 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 Will monitor. D/C Toradol Maintain CT to drainage 12/24 Clinically stable Still waiting for floor bed Chest tubes continue to drain. Maintained to suction Discharge planning 12/25 Clinically and hemodynamically stable DC chest tubes today Discharge planning Objective: Vital Signs - 24 hr 12/24/18 09:33 12/24/18 11:00 12/24/18 14:00 Temperature 98.1 F Pulse Rate 76 76 71 Respiratory Rate 18 16 Blood Pressure 121/69 Pulse Oximetry 94 L 91 L 12/24/18 15:00 12/24/18 16:00 12/24/18 17:00 Temperature 98.1 F Pulse Rate 71 73 77 Respiratory Rate 18 Blood Pressure 121/60 Pulse Oximetry 94 L 12/24/18 18:00 12/24/18 19:00 12/24/18 20:00 Temperature 98.3 F Pulse Rate 71 78 76 Respiratory Rate 20 Blood Pressure 136/63 Pulse Oximetry 92 L 92 L 12/24/18 21:00 12/24/18 22:00 12/24/18 23:00 Temperature 98.2 F Pulse Rate 80 76 73 Respiratory Rate 20 Blood Pressure 128/68 Pulse Oximetry 98 12/25/18 00:00 12/25/18 01:00 12/25/18 02:00 Temperature Pulse Rate 70 70 76 Respiratory Rate Blood Pressure Pulse Oximetry 12/25/18 03:00 12/25/18 04:00 12/25/18 04:46 Temperature 97.9 F Pulse Rate 72 80 Respiratory Rate 20 18 Blood Pressure 148/69 H Pulse Oximetry 94 L 12/25/18 05:00 12/25/18 06:00 Temperature Pulse Rate 66 60 Respiratory Rate Blood Pressure Pulse Oximetry Labs: Laboratory Results - last 12 hr 12/25/18 08:16 POC Glucose 167 H Result Diagrams: 12/24/18 10:00 12/24/18 10:00 - Plan (2) S/P CABG x 3 Plan: Neuro: stable Resp: pulm toielting nebs ezpap acapella wean 02 as tolerated CV: start BB , cozaar on ASA , statin amiodarone hold plavix until am GI: motility meds PPI Heme: monitor plts hold plavix today CM to eval for rehab at discharge transfer to stepdown unit
[2018-12-26] MEDS: Insulin NovoLOG Aspart Correctional Sugar Inj SQ SCH ×4 (08:34→20:14)
[2018-12-26] MEDS: Metoprolol Tartrate 25 MG Tablet PO SCH ×3 (09:19→20:13)
[2018-12-26] MEDS: Multivitamin/Minerals Therapeutic Tablet PO SCH (09:19)
[2018-12-26] MEDS: Amiodarone 200 MG Tablet PO SCH ×2 (09:20→20:16)
[2018-12-26] MEDS: Polyethylene Glycol 3350 17 GM Packet PO SCH (09:20)
[2018-12-26] MEDS: Docusate Sodium 100 MG Capsule PO SCH ×2 (09:20→20:16)
--- NOTE | 2018-12-26 10:02 | P.DS ---
Date of admission: 12/21/18 05:34 Primary care physician: Do Giancarlo Perdomo Anticipated date of discharge: 12/26/18 Brief History from admission: 3-year-old male initially seen 11/19/18 post cardiac cath , followed by Dr. Carl , Dr. De Los Santos and also Dr. Aristides Gee who has been experiencing some exertional chest pain off and on for the past year, midsternal in nature. He was seen by Dr. De Los Santos in the past for a history of TIA and followup with echos and recently was seen in the office on 11/04/2018. He underwent a nuclear stress test which showed an ejection fraction of 55%, moderate ischemia of the inferolateral wall, left ventricular function normal. He also had a 2-D echo which showed an ejection fraction of 53%, some diastolic dysfunction. The left atrium was moderately dilated. No mitral disease. Some trivial tricuspid disease. Mild LVH. It showed a mildly enlarged aortic root. The root measured 44 mm. He underwent a cardiac catheterization which showed left main disease 10%, proximal LAD 60%, mid distal LAD 80%, diagonal 70%, circumflex 100% , OM 80%, RCA 100%. PAST MEDICAL HISTORY: Includes a history of TIA. His last one was in July 2017. He has had 4 episodes in the past. Hyperlipidemia, hypertension, sleep apnea. 12/21 pt electively admitted for surgery DS: Diagnosis - Discharge Diagnosis (1) CAD (coronary artery disease), [place] coronary artery Status: Acute (2) S/P CABG x 3 Status: Acute (3) Hyperlipidemia Status: Chronic (4) Hypertension Status: Chronic (5) Hyperlipidemia Status: Chronic DS: Medications - Discharge Medications Prescriptions: aspirin 81 mg PO DAILY 90 Days #90 tab docusate sodium [DOK] 100 mg PO BID 28 Days #56 cap hydrocodone-acetaminophen 1 tab PO Q3H PRN #40 tab PRN Reason: Pain Scale 1 To 5 DS: Summary Hospital Course: 3-year-old male initially seen 11/19/18 post cardiac cath , followed by Dr. Carl , Dr. De Los Santos and also Dr. Aristides Gee who has been experiencing some exertional chest pain off and on for the past year, midsternal in nature. He was seen by Dr. De Los Santos in the past for a history of TIA and followup with echos and recently was seen in the office on 11/04/2018. He underwent a nuclear stress test which showed an ejection fraction of 55%, moderate ischemia of the inferolateral wall, left ventricular function normal. He also had a 2-D echo which showed an ejection fraction of 53%, some diastolic dysfunction. The left atrium was moderately dilated. No mitral disease. Some trivial tricuspid disease. Mild LVH. It showed a mildly enlarged aortic root. The root measured 44 mm. He underwent a cardiac catheterization which showed left main disease 10%, proximal LAD 60%, mid distal LAD 80%, diagonal 70%, circumflex 100% , OM 80%, RCA 100%. PAST MEDICAL HISTORY: Includes a history of TIA. His last one was in July 2017. He has had 4 episodes in the past. Hyperlipidemia, hypertension, sleep apnea. 12/21 pt electively admitted for surgery SURGICAL PROCEDURE 1. Off-pump Coronary Artery Bypass Grafting x 3 with Left Internal Mammary Artery (LÓPEZ) to Left Anterior Descending (LAD), reverse saphenous vein graft to Diagonal 1 branch of the left Anterior Descending Artery, reverse saphenous vein graft to the posterior Descending branch of the right Coronary artery 2. Left leg Endoscopic Vein [place] 3. Intraoperative Vein Mapping. 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 Will monitor. D/C Toradol Maintain CT to drainage 12/24 Clinically stable Still waiting for floor bed Chest tubes continue to drain. Maintained to suction Discharge planning 12/25 Clinically and hemodynamically stable DC chest tubes today Discharge planning 12/26 D/C Home - Time Spent with Patient Total time spent providing and/or coordinating discharge services: Less than 30 minutes - Quality: VTE Deep Vein Thrombosis/Pulmonary Embolism Present on Admission: No Exam Vital signs: Vital Signs 12/25/18 11:00 12/25/18 12:00 12/25/18 13:00 Temperature 98.8 F Pulse Rate 62 62 60 Respiratory Rate 20 20 Blood Pressure 118/65 Pulse Oximetry 94 L 12/25/18 14:00 12/25/18 15:00 12/25/18 16:00 Temperature 98.6 F Pulse Rate 62 64 63 Respiratory Rate 20 20 Blood Pressure 138/65 Pulse Oximetry 98 12/25/18 17:00 12/25/18 18:00 12/25/18 19:00 Temperature 97.7 F Pulse Rate 69 68 69 Respiratory Rate 22 Blood Pressure 131/82 Pulse Oximetry 95 12/25/18 20:00 12/25/18 21:00 12/25/18 22:00 Temperature Pulse Rate 68 64 74 Respiratory Rate Blood Pressure Pulse Oximetry 95 12/25/18 23:00 12/26/18 00:00 12/26/18 01:00 Temperature 98.5 F Pulse Rate 65 66 68 Respiratory Rate 24 Blood Pressure 150/71 H Pulse Oximetry 96 12/26/18 02:00 12/26/18 03:00 12/26/18 04:00 Temperature 97.8 F Pulse Rate 68 74 74 Respiratory Rate 24 Blood Pressure 157/75 H Pulse Oximetry 94 L 12/26/18 04:30 12/26/18 05:00 12/26/18 06:00 Temperature Pulse Rate 70 70 Respiratory Rate 18 Blood Pressure Pulse Oximetry Intake & Output 12/25/18 12/26/18 12/26/18 18:59 06:59 18:59 Intake Total 960 / 960 480 / 480 Output Total 350 / 350 Balance 610 / 610 480 / 480 Weight 125.1 kg Intake: Oral 960 / 960 480 / 480 Output: Urine 350 / 350 Other: # Voids 2 4 Date of Last Bowel Movement 12/25/18 12/26/18 # Bowel Movements 3 3 Results Procedures completed during hospitalization: SURGICAL PROCEDURE 1. Off-pump Coronary Artery Bypass Grafting x 3 with Left Internal Mammary Artery (LÓPEZ) to Left Anterior Descending (LAD), reverse saphenous vein graft to Diagonal 1 branch of the left Anterior Descending Artery, reverse saphenous vein graft to the posterior Descending branch of the right Coronary artery 2. Left leg Endoscopic Vein [place] 3. Intraoperative Vein Mapping. extubated after surgery crystalloid 3500cc, 1000cc cell saver, 2000cc EBL Labs on day of discharge: Labs from last 24 hours 12/26/18 12/25/18 12/25/18 07:55 20:24 17:01 POC Glucose 107 119 H 114 H 12/25/18 12:01 POC Glucose 140 H - Impressions ITS Impressions Chest X-Ray 12/23/18 19:04 CONCLUSION: Cardiomegaly with mild interstitial edema, improved in the interval. Discharge Plan - Discharge Disposition Patient Disposition: Disch W/Home Health Service - Discharge Condition Condition: Good - Discharge Order Discharge Orders: Discharge Order (Routine); Ordered 12/26/18 Ordered By: Taylor Hackett - Discharge Details Anticipated Discharge Date: 12/26/18 - Physicians Team Primary Care Provider: Do Giancarlo Perdomo Attending Provider: Taylor Hackett Other Providers: Linda Mckeon - Rxs /Orders / Referrals /Forms Prescriptions: New aspirin 81 mg Tablet,Chewable 81 mg PO DAILY 90 Days Qty: 90 RF: 10 docusate sodium [DOK] 100 mg Capsule 100 mg PO BID 28 Days Qty: 56 RF: 0 hydrocodone-acetaminophen 5-325 mg Tablet 1 tab PO Q3H PRN (Reason: Pain Scale 1 To 5) Qty: 40 RF: 0 Continue atorvastatin 20 mg Tablet 20 mg PO DAILY isosorbide mononitrate 30 mg Tablet Extended Release 24 Hr 30 mg PO DAILY losartan 50 mg Tablet 50 mg PO DAILY metoprolol succinate 25 mg Tablet Extended Release 24 Hr 25 mg PO DAILY rivaroxaban [Xarelto] 20 mg Tablet 20 mg PO DAILY Referrals: Do Natalie Perdomo [Other] - See Instructions (Your appointment has been scheduled for [01/03/19] at [3:20 pm] If you cannot make this appointment, please call the office to reschedule ) Geovanny De Los Santos MD [Physician] - See Instructions ( Your appointment has been scheduled for [01/20/19] at [3:45 pm] If you cannot make this appointment, please call the office to reschedule ) Kimi Bueno [ADVANCE RN PRACTITIONER] - See Instructions ( Your appointment has been scheduled for [01/11/19] at [10:30 am] If you cannot make this appointment, please call the office to reschedule ) - Discharge Instructions Patient Printed Instructions: CABG (Coronary Artery Bypass Graft) (DC) Additional Instructions: PREVENA Single Use Negative Wound Therapy System Caregiver Instruction Sheet 1. A Prevena dressing system was applied to the chest incision during surgery , to promote wound healing. It works via a suction device (negative pressure wound therapy) to remove low to moderate levels of exudate (drainage) and infectious materials. We recommend that the device stay in place for up to seven days, from day of surgery. 2. Day of Surgery___12/21/18 Day of Removal ___12/28/18 3. The dressing should only be removed by a health critical care unit nurse. Please arrange removal of device to coincide with Home Health visit and or with Nursing staff at Rehab 4. If skin reddening or irritation of skin occurs, or excessive drainage, please notify the Cardiovascular Surgeons office at [phone]. 5. Light showering is permissible; however the pump should be disconnected and placed in safe location, where it will not get wet. The dressing should not be exposed to direct spray or submerged in water. No bath tub / shower only. Ensure the end of the tubing attached to the dressing is facing down so that water does not enter the top of the tube. 6. To remove Prevena dressing: press purple button to turn off device / remove the suction. Then disconnect the tubing from the pump. The fixation strips should be stretched away from the skin and the dressing lifted at one corner and peeled back until it has been fully removed. 7. After removal, it is ok to shower daily using liquid dial soap and clean wash cloth, rinse and pat dry, and leave incision open to air dry. For any concerns regarding Prevena dressing, and or wounds, please contact Aidee Cat, patient navigator at [phone] or notify the Cardiovascular Surgeons office at [phone]. Incentive spirometry Q1 hr x 10, while awake, also use acapella device hourly whole awake Sternal Breast Bone Precautions: NO pushing or pulling, ( pt must use sternal pillow to support chest with all activities and with coughing ( takes up to 3 months breast bone to heal ) All females to wear sternal bra , launder as needed Daily incision care: ok to shower daily, no tub bath. Wash all incisions with liquid dial soap, clean wash cloth to each site, rinse and pat dry. Observe for any signs of infection, such as drainage which is dark yellow, velez, green or foul smelling. Immediately report to the surgeon any drainage from the chest incision, or legs, and for any abnormal drainage from the chest tube sites. Notify surgeon if any temp >101.5 degrees F. When specialty dressing removed/ or if you do not have one, continue to shower daily as above, then rinse and pat incision dry and paint with betadine daily x 5 days. Allow steri strips to fall off if you have any. Avoid lotions, creams, salves, oils, etc. for the first month Please see attached forms for additional instructions regarding post Open Heart specialty wound vacuum dressings. VANESSA or Prevena , Dressing to be removed by Nursing staff on ___/____ F/U appointment: as per DC instructions: PCP in 2 weeks, CV surgeon 2 weeks, Ostomy Care Nurse 3-4 weeks For any questions regarding incisions/ dressing / meds / post op care or above Symptoms, Thursday 8am-5pm Heart & Vascular Surgery Office ( Dr. Hackett & Dr. Noble), After Hours / Nights (5pm -8am) Weekends and Holidays Please call [facility] Cardiac Intermediate Care Unit (CIC) Charge Nurse
--- NOTE | 2018-12-26 12:23 | P.CONIM ---
History of Present Illness Service: [facility] Reason for Consult: Gout attack. Primary Care Provider: Do Giancarlo Perdomo Chief Complaint: Right elbow pain History of Present Illness: 83-year-old male with a medical history significant for hypertension, history of TIA, gout, coronary artery disease admitted for elective CABG. The patient is postop day #5. He complains of right elbow pain and swelling today. Hospitalist service consulted for possible gout. Patient reports a history of gout. His last gouty attack involving his toe was about 2 years ago. He has been doing well up until 2 months ago when he noticed some swelling and pain of the right elbow. It significantly improved. However today he noticed the swelling and pain has returned. He he cannot tell whether or not he injured the right elbow at some point. Currently reports pain with range of motion. Pain is described as sharp and severe at times. There is no radiation. He is afebrile. Review of Systems Review of Systems: all other systems reviewed are negative [facility] Medical History Medical History CAD (coronary artery disease) (Acute) Full dentures (Acute) [place] (hard of hearing) (Acute) High cholesterol (Acute) History of TIAs (Acute) Hypertension (Acute) Surgical History Surgical History Hx of appendectomy (Acute) Family History Family History Other Family history non-contributory Social History Social History Substance History: No History of Abuse Second Hand Smoke Exposure: No Smoking Status: Former smoker How Often Do You Have a Drink Containing Alcohol: 4 or more times a week Medications and Allergies Allergies Allergy/AdvReac Type Severity Reaction Status Date / Time No Known Allergies Allergy Verified 12/17/18 15:13 Home Medications Medication Instructions Recorded Confirmed Type isosorbide mononitrate 30 mg PO DAILY 11/19/18 12/21/18 History losartan 50 mg PO DAILY 11/19/18 12/21/18 History metoprolol succinate 25 mg PO DAILY 11/19/18 12/21/18 History rivaroxaban [Xarelto] 20 mg PO DAILY 11/19/18 12/21/18 History atorvastatin 20 mg PO DAILY 12/17/18 12/17/18 History Active Medications: Active Medications Hydrocodone Bitart/Acetaminophen ([place] 5/325) 1 tab PO Q3H PRN PRN Reason: PAIN SCALE 1 TO 5 Last Admin: 12/26/18 09:19 Dose: 1 tab Al Hydroxide/Mg Hydroxide (Milk Of Blake Lialize) 30 ml PO DAILY [facility] Last Admin: 12/26/18 09:20 Dose: Not Given Albuterol (Duoneb Neb (Prn)) 1 ampul NEB Q2HR NEB PRN PRN Reason: WHEEZING Amiodarone HCl (Cordarone) 200 mg PO Q12HR [facility] Last Admin: 12/26/18 09:20 Dose: Not Given Aspirin (Aspirin Chew) 81 mg PO DAILY [facility] Last Admin: 12/26/18 09:19 Dose: 81 mg Atorvastatin Calcium (Lipitor) 20 mg PO DAILY [facility] Last Admin: 12/26/18 09:18 Dose: 20 mg Bisacodyl (Dulcolax Supp) 10 mg RECTAL PRN PRN PRN Reason: SEE LABEL COMMENTS Dextrose (D50w Vial) 50 ml IV.PUSH UNSCH PRN PRN Reason: PER HYPOGLYCEMIA PROTOCOL Docusate Sodium (Colace) 100 mg PO BID [facility] Last Admin: 12/26/18 09:20 Dose: Not Given Glucagon (Glucagon Inj) 1 mg OTHER PRN PRN PRN Reason: For hypoglycemia Sodium Chloride (Ns Inj) 500 mls @ 30 mls/hr IV.SIG .Q10H [facility] Last Admin: 12/21/18 13:44 Dose: Not Given Insulin Aspart (Novolog Insulin [place] Sugar Inj) 0 unit SQ ACHS [facility]; Protocol Last Admin: 12/26/18 12:03 Dose: Not Given Losartan Potassium (Cozaar) 25 mg PO DAILY [facility] Last Admin: 12/26/18 09:18 Dose: 25 mg Metoprolol Tartrate (Lopressor) 12.5 mg PO PLATE KEEPER [facility] Stop: 12/27/18 03:18 Last Admin: 12/26/18 09:19 Dose: 12.5 mg Metoprolol Tartrate (Lopressor) 12.5 mg PO BID [facility] Last Admin: 12/26/18 09:20 Dose: Not Given Miscellaneous (Pill Splitter) 1 each OTHER UNSCH [facility] Multivitamins/Minerals (Theragran-M) 1 tab PO DAILY [facility] Last Admin: 12/26/18 09:19 Dose: 1 tab Ondansetron HCl (Zofran Inj) 4 mg IV.PUSH Q6H PRN PRN Reason: NAUSEA OR VOMITING Pantoprazole Sodium (Protonix) 40 mg PO DAILY@06 [facility] Last Admin: 12/26/18 06:19 Dose: 40 mg Polyethylene Glycol (Miralax) 17 gm PO DAILY [facility] Last Admin: 12/26/18 09:20 Dose: Not Given Sennosides (Senokot) 8.6 mg PO HS [facility] Last Admin: 12/25/18 21:17 Dose: Not Given Sodium Biphosphate/Sodium Phosphate (Fleets Enema (Adult)) 118 ml RECTAL UNSCH PRN PRN Reason: SEE LABEL COMMENTS Sodium Chloride (Ns Flush) 2 ml IV.FLUSH BID [facility] Last Admin: 12/26/18 09:21 Dose: 2 ml Sodium Chloride (Ns Flush) 2 ml IV.FLUSH PRN PRN PRN Reason: FLUSH AFTER USING IV ACCESS Physical Exam Vital signs: Vital Signs 12/25/18 13:00 12/25/18 14:00 12/25/18 15:00 Temperature 98.6 F Pulse Rate 60 62 64 Respiratory Rate 20 Blood Pressure 138/65 Pulse Oximetry 98 12/25/18 16:00 12/25/18 17:00 12/25/18 18:00 Temperature Pulse Rate 63 69 68 Respiratory Rate 20 Blood Pressure Pulse Oximetry 12/25/18 19:00 12/25/18 20:00 12/25/18 21:00 Temperature 97.7 F Pulse Rate 69 68 64 Respiratory Rate 22 Blood Pressure 131/82 Pulse Oximetry 95 95 12/25/18 22:00 12/25/18 23:00 12/26/18 00:00 Temperature 98.5 F Pulse Rate 74 65 66 Respiratory Rate 24 Blood Pressure 150/71 H Pulse Oximetry 96 12/26/18 01:00 12/26/18 02:00 12/26/18 03:00 Temperature 97.8 F Pulse Rate 68 68 74 Respiratory Rate 24 Blood Pressure 157/75 H Pulse Oximetry 94 L 12/26/18 04:00 12/26/18 04:30 12/26/18 05:00 Temperature Pulse Rate 74 70 Respiratory Rate 18 Blood Pressure Pulse Oximetry 12/26/18 06:00 Temperature Pulse Rate 70 Respiratory Rate Blood Pressure Pulse Oximetry Intake & Output 12/25/18 12/26/18 12/26/18 18:59 06:59 18:59 Intake Total 960 / 960 480 / 480 Output Total 350 / 350 Balance 610 / 610 480 / 480 Weight 125.1 kg Intake: Oral 960 / 960 480 / 480 Output: Urine 350 / 350 Other: # Voids 2 4 Date of Last Bowel Movement 12/25/18 12/26/18 # Bowel Movements 3 3 Narrative: GENERAL: This is a well-nourished, well-developed patient, in no apparent distress. CARDIOVASCULAR: Normal rate and regular rhythm. Slight rub. No significant murmur. RESPIRATORY: Good respiratory efforts. Breath sounds equal and clear to auscultation bilaterally. GASTROINTESTINAL: Abdomen soft, non-tender, non-distended. Normal active bowel sounds MUSCULOSKELETAL: Right elbow exam notable for olecranon swelling/bursitis. No significant surrounding erythema or warmth. Passive and active range of motion is painful. NEURO: Alert & Oriented x4 to person, place, time, situation. Moves all ext x4 PSYCH: Appropriate mood and affect. Urinary Catheter Management Indwelling Temp Sensing Catheter: Cath placed during this visit: yes, but has since been removed by the nurse Reason for continuing: Not indwelling catheter Insertion date: 12/22/18 Insertion time: 16:30 Removal date: 12/22/18 Removal time: 16:40 Results Labs CBC & Chem 7: 12/24/18 10:00 12/24/18 10:00 Assessment and Plan (1) CAD (coronary artery disease), [place] coronary artery: Code(s): I25.10 - Atherosclerotic heart disease of [place] coronary artery without angina pectoris Status: Acute (2) S/P CABG x 3: Code(s): Z95.1 - Presence of aortocoronary bypass graft Status: Acute (3) Hyperlipidemia: Code(s): E78.5 - Hyperlipidemia, unspecified Status: Chronic (4) Hypertension: Code(s): I10 - Essential (primary) hypertension Status: Chronic (5) Hyperlipidemia: Code(s): E78.5 - Hyperlipidemia, unspecified Status: Chronic Plan 83-year-old male admitted for elective CABG. Patient is postop day 5. He is having what appeared to be a an acute gout flare. Right elbow gout flareup: - Last gouty attack was about 2 years ago involving his toe. He could not tell whether or not he injured the right elbow. - Will obtain x-ray - We will treat him with prednisone 40 mg daily for 3 days then taper over 5-7 days. We discussed the potential side effects. He should follow-up with PCP. - Pain control. Status post CABG: - CT surgery following. Continue current medications including amiodarone, metoprolol, losartan, aspirin. Hypertension: - On metoprolol and losartan as above. GI prophylaxis: Stool softener PRN constipation. Protonix _ (1) Hyperlipidemia Qualifiers: Hyperlipidemia type: (2) Hyperlipidemia Qualifiers: Hyperlipidemia type: (3) CAD (coronary artery disease), [place] coronary artery Qualifiers: Associated angina: [place] vs. transplanted heart: (4) Hypertension Qualifiers: Hypertension type:
[2018-12-26] MEDS: predniSONE 20 MG Tablet PO SCH ×2 (13:50→20:13)
--- NOTE | 2018-12-26 14:37 | XR ---
EXAM DATE: 12/26/2018 2:32 PM EST AGE/SEX: 83 years / Male INDICATIONS: Right elbow pain. No known injury. CLINICAL DATA: This is the patient's initial encounter. Patient reports that signs and symptoms have been present for 1 month and indicates a pain score of 5/10. MEDICAL/SURGICAL HISTORY: None. CABG. COMPARISON: No prior exams available for comparison. FINDINGS: Bony structures are intact and in normal alignment. Joints are intact without dislocation or signifi cant arthropathy. Osseous density is normal. Soft tissues are unremarkable. No radiopaque foreign bodies seen. CONCLUSION: 1. Negative examination. Electronically signed by: Bertin Youssef MD Board Certified Radiologist 12/26/2018 2:36 PM EST
[2018-12-27] MEDS: Multivitamin/Minerals Therapeutic Tablet PO SCH (08:20)
[2018-12-27] MEDS: predniSONE 20 MG Tablet PO SCH (08:20)
[2018-12-27] MEDS: Insulin NovoLOG Aspart Correctional Sugar Inj SQ SCH ×2 (08:20→12:02)
[2018-12-27] MEDS: Docusate Sodium 100 MG Capsule PO SCH (08:20)
[2018-12-27] MEDS: Metoprolol Tartrate 25 MG Tablet PO SCH (08:21)
[2018-12-27] MEDS: Amiodarone 200 MG Tablet PO SCH (08:22)
[2018-12-27] MEDS: Polyethylene Glycol 3350 17 GM Packet PO SCH (08:22)
[2018-12-27 09:47] VITALS: RESP 18
--- NOTE | 2018-12-27 10:30 | P.PNCV ---
- Note Subjective/Hospital Course: 11/19/2018 83-year-old male initially seen 11/19/18 post cardiac cath , followed by Dr. Carl, Dr. De Los Santos and also Dr. Aristides Gee who has been experiencing some exertional chest pain off and on for the past year, midsternal in nature. He was seen by Dr. De Los Santos in the past for a history of TIA and followup with echos and recently was seen in the office on 11/04/2018. He underwent a nuclear stress test which showed an ejection fraction of 55%, moderate ischemia of the inferolateral wall, left ventricular function normal. He also had a 2-D echo which showed an ejection fraction of 53%, some diastolic dysfunction. The left atrium was moderately dilated. No mitral disease. Some trivial tricuspid disease. Mild LVH. It showed a mildly enlarged aortic root. The root measured 44 mm. He underwent a cardiac catheterization which showed left main disease 10%, proximal LAD 60%, mid distal LAD 80%, diagonal 70%, circumflex 100% , OM 80%, RCA 100%. PAST MEDICAL HISTORY: Includes a history of TIA. His last one was in July 2017. He has had 4 episodes in the past. Hyperlipidemia, hypertension, sleep apnea. 12/21 pt electively admitted for surgery SURGICAL PROCEDURE 1. Off-pump Coronary Artery Bypass Grafting x 3 with Left Internal Mammary Artery (LÓPEZ) to Left Anterior Descending (LAD), reverse saphenous vein graft to Diagonal 1 branch of the left Anterior Descending Artery, reverse saphenous vein graft to the posterior Descending branch of the right Coronary artery 2. Left leg Endoscopic Vein [place] 3. Intraoperative Vein Mapping. extubated after surgery crystalloid 3500cc, 1000cc cell saver, 2000cc EBL 12/22 pt weaned off all IV meds, BP on higher driller multiple spindle, will add BB and Cozaar pain control PLT 79 ( 113) hold plavix today , ok for ASA will transfer to stepdown unit 12/23 Clinically stable Awaiting CPCU transfer Creatinine up. Will monitor. D/C Toradol Maintain CT to drainage 12/24 Clinically stable Still waiting for floor bed Chest tubes continue to drain. Maintained to suction Discharge planning 12/25 Clinically and hemodynamically stable DC chest tubes today Discharge planning 12/26 pt doing well, on room air stable for dc home has son and at home home with [facility] Objective: Vital Signs - 24 hr 12/26/18 11:00 12/26/18 12:00 12/26/18 13:00 Temperature 97.8 F Pulse Rate 79 65 68 Respiratory Rate 20 Blood Pressure 106/58 L Pulse Oximetry 93 L 12/26/18 14:00 12/26/18 15:00 12/26/18 15:52 Temperature 98.7 F Pulse Rate 74 71 Respiratory Rate 20 Blood Pressure 137/70 Pulse Oximetry 97 94 L 12/26/18 16:00 12/26/18 17:00 12/26/18 18:00 Temperature Pulse Rate 75 78 72 Respiratory Rate Blood Pressure Pulse Oximetry 12/26/18 19:00 12/26/18 20:00 12/26/18 21:00 Temperature 98.3 F Pulse Rate 73 78 80 Respiratory Rate 20 Blood Pressure 144/65 H Pulse Oximetry 95 95 12/26/18 22:00 12/26/18 22:02 12/26/18 23:00 Temperature 97.7 F Pulse Rate 79 88 Respiratory Rate 20 24 Blood Pressure 126/60 Pulse Oximetry 94 L 12/27/18 00:00 12/27/18 01:00 12/27/18 02:00 Temperature Pulse Rate 76 70 72 Respiratory Rate Blood Pressure Pulse Oximetry 12/27/18 03:00 12/27/18 04:00 12/27/18 05:00 Temperature 97.6 F Pulse Rate 76 74 74 Respiratory Rate 20 Blood Pressure 158/84 H Pulse Oximetry 94 L 12/27/18 05:52 12/27/18 06:00 12/27/18 07:00 Temperature 97.9 F Pulse Rate 74 77 Respiratory Rate 20 18 Blood Pressure 154/82 H Pulse Oximetry 97 12/27/18 08:00 Temperature Pulse Rate Respiratory Rate Blood Pressure Pulse Oximetry 97 GENERAL: A&O X 3 SKIN: Warm and dry. prevena dressing to chest HEAD: Normocephalic. EYES: No scleral icterus. No injection or drainage. NECK: Supple, trachea midline. No JVD or lymphadenopathy. CARDIOVASCULAR: Regular rate and rhythm without murmurs, gallops, or rubs. RESPIRATORY: Breath sounds equal bilaterally. No accessory muscle use. GASTROINTESTINAL: Abdomen soft, non-tender, nondistended. MUSCULOSKELETAL: No cyanosis, or edema. BACK: Nontender without obvious deformity. No CVA tenderness. Labs: Laboratory Results - last 12 hr 12/27/18 08:17 POC Glucose 135 H Result Diagrams: 12/24/18 10:00 12/24/18 10:00 - Plan (2) S/P CABG x 3 Plan: Neuro: stable Resp: pulm toielting nebs ezpap acapella CV: start BB , cozaar on ASA , statin amiodarone GI: motility meds PPI Heme: monitor plts stable for dc home today
--- NOTE | 2018-12-27 10:35 | P.PNIM ---
Subjective Interval history: Patient reports he is feeling better overall. Right elbow pain is improved. Physical Exam Vital signs: Vital Signs 12/26/18 11:00 12/26/18 12:00 12/26/18 13:00 Temperature 97.8 F Pulse Rate 79 65 68 Respiratory Rate 20 Blood Pressure 106/58 L Pulse Oximetry 93 L 12/26/18 14:00 12/26/18 15:00 12/26/18 15:52 Temperature 98.7 F Pulse Rate 74 71 Respiratory Rate 20 Blood Pressure 137/70 Pulse Oximetry 97 94 L 12/26/18 16:00 12/26/18 17:00 12/26/18 18:00 Temperature Pulse Rate 75 78 72 Respiratory Rate Blood Pressure Pulse Oximetry 12/26/18 19:00 12/26/18 20:00 12/26/18 21:00 Temperature 98.3 F Pulse Rate 73 78 80 Respiratory Rate 20 Blood Pressure 144/65 H Pulse Oximetry 95 95 12/26/18 22:00 12/26/18 22:02 12/26/18 23:00 Temperature 97.7 F Pulse Rate 79 88 Respiratory Rate 20 24 Blood Pressure 126/60 Pulse Oximetry 94 L 12/27/18 00:00 12/27/18 01:00 12/27/18 02:00 Temperature Pulse Rate 76 70 72 Respiratory Rate Blood Pressure Pulse Oximetry 12/27/18 03:00 12/27/18 04:00 12/27/18 05:00 Temperature 97.6 F Pulse Rate 76 74 74 Respiratory Rate 20 Blood Pressure 158/84 H Pulse Oximetry 94 L 12/27/18 05:52 12/27/18 06:00 12/27/18 07:00 Temperature 97.9 F Pulse Rate 74 77 Respiratory Rate 20 18 Blood Pressure 154/82 H Pulse Oximetry 97 12/27/18 08:00 Temperature Pulse Rate Respiratory Rate Blood Pressure Pulse Oximetry 97 Intake & Output 12/26/18 12/27/18 12/27/18 18:59 06:59 18:59 Intake Total 960 / 960 480 / 480 Output Total 500 / 500 Balance 460 / 460 480 / 480 Weight 122.7 kg Intake: Oral 960 / 960 480 / 480 Output: Urine 500 / 500 Other: # Voids 2 6 Date of Last Bowel Movement 02/24/19 02/24/19 02/24/19 # Bowel Movements 3 Narrative: GENERAL: This is a well-nourished, well-developed patient, in no apparent distress. CARDIOVASCULAR: Normal rate and regular rhythm. Slight rub. No significant murmur. RESPIRATORY: Good respiratory efforts. Breath sounds equal and clear to auscultation bilaterally. GASTROINTESTINAL: Abdomen soft, non-tender, non-distended. Normal active bowel sounds MUSCULOSKELETAL: Right elbow exam notable for olecranon swelling/bursitis. No significant surrounding erythema or warmth. Passive and active range of motion is painful. NEURO: Alert & Oriented x4 to person, place, time, situation. Moves all ext x4 PSYCH: Appropriate mood and affect. Urinary Catheter Management Indwelling Temp Sensing Catheter: Cath placed during this visit: yes, but has since been removed by the nurse Reason for continuing: Not indwelling catheter Insertion date: 12/22/18 Insertion time: 16:30 Removal date: 12/22/18 Removal time: 16:40 Results Labs CBC & Chem 7: 12/24/18 10:00 12/24/18 10:00 Imaging Imaging: Impressions Elbow X-Ray 12/26/18 00:00 CONCLUSION: 1. Negative examination. Procedures Procedures: SURGICAL PROCEDURE 1. Off-pump Coronary Artery Bypass Grafting x 3 with Left Internal Mammary Artery (LÓPEZ) to Left Anterior Descending (LAD), reverse saphenous vein graft to Diagonal 1 branch of the left Anterior Descending Artery, reverse saphenous vein graft to the posterior Descending branch of the right Coronary artery 2. Left leg Endoscopic Vein [place] 3. Intraoperative Vein Mapping. extubated after surgery crystalloid 3500cc, 1000cc cell saver, 2000cc EBL Assessment and Plan (1) CAD (coronary artery disease), [place] coronary artery: Code(s): I25.10 - Atherosclerotic heart disease of [place] coronary artery without angina pectoris Status: Acute (2) S/P CABG x 3: Code(s): Z95.1 - Presence of aortocoronary bypass graft Status: Acute (3) Hyperlipidemia: Code(s): E78.5 - Hyperlipidemia, unspecified Status: Chronic (4) Hypertension: Code(s): I10 - Essential (primary) hypertension Status: Chronic (5) Hyperlipidemia: Code(s): E78.5 - Hyperlipidemia, unspecified Status: Chronic Plan 83-year-old male admitted for elective CABG. Patient is postop day 5. He is having what appeared to be a an acute gout flare. Right elbow gout flareup: - Last gouty attack was about 2 years ago involving his toe. He could not tell whether or not he injured the right elbow. -Elbow x-ray is negative. - We will treat him with prednisone 40 mg daily for 3 days then taper over 5-7 days. We discussed the potential side effects. He should follow-up with PCP. - Pain control. Prescription written for discharge. Status post CABG: - CT surgery following. Continue current medications including amiodarone, metoprolol, losartan, aspirin. Hypertension: - On metoprolol and losartan as above. Progress Note: Quality VTE Deep Vein Thrombosis/Pulmonary Embolism Present on Admission: No _ (1) Hyperlipidemia Qualifiers: Hyperlipidemia type: (2) Hyperlipidemia Qualifiers: Hyperlipidemia type: (3) CAD (coronary artery disease), [place] coronary artery Qualifiers: Associated angina: [place] vs. transplanted heart: (4) Hypertension Qualifiers: Hypertension type:
[2018-12-27 11:33] VITALS: BP 169/79; TEMP 98.1; O2SAT 95
[2018-12-27 12:06] VITALS: PULSE 72
== END 2018-12-27 13:48 | disposition home health service (06) | DRG 236 ==
LOC: HSDI 05:34 → HCVI 12:58 → HCPC 12-24 12:58
PROVIDERS: ADMIT Thoracic Surgery (Cardiothoracic Vascular Surgery); ATTEND Thoracic Surgery (Cardiothoracic Vascular Surgery)
DX: Z86.73 Personal history of transient ischemic attack (TIA), and cerebral infarction without residual deficits; I10 Essential (primary) hypertension; I25.118 Atherosclerotic heart disease of native coronary artery with other forms of angina pectoris; Z79.01 Long term (current) use of anticoagulants; E78.00 Pure hypercholesterolemia, unspecified; E78.5 Hyperlipidemia, unspecified; Z87.891 Personal history of nicotine dependence; G47.30 Sleep apnea, unspecified; Z90.49 Acquired absence of other specified parts of digestive tract; Z79.899 Other long term (current) drug therapy; M25.521 Pain in right elbow; M10.9 Gout, unspecified; H91.90 Unspecified hearing loss, unspecified ear
CPT/HCPCS: 36430; 71010; 71045; 73080; 76937; 80048; 82948; 82962; 83735; 85014; 85025; 85027; 86850; 86900; 86901; 86923; 87641; 93005; 93312; 93318; 94002; 94150; 94640; 94650; 94651; 94656; 94664; 94665; 94667; 97110; 97116; 97162; 97530; C1768; C9248; J0131; J0690; J1644; J1815; J1817; J1885; J2250; J2370; J2440; J2720; J3010; J3370; J3475; J7120; J7506; J7512; P9016; P9045